=== PATIENT | female | born 2000 | race African-American/Black ===

== ENCOUNTER 2024-04-05 10:00 | Emergency (ER) | payer OTHER, SELFPAY ==
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
[2024-04-05 10:01] VITALS: BP 104/68; PULSE 87; RESP 18; TEMP 36.7; O2SAT 99
--- NOTE | 2024-04-05 11:19 | PC.NURSE ---
Pt refused medications said I can not swallow these . Pt try to take medications but spit them out.
[2024-04-05 11:22] LABS: BEDSIDEPREGUCG Negative (Negative)
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
[2024-04-05 12:31] VITALS: BP 100/60; PULSE 75; RESP 16; O2SAT 99
== END 2024-04-05 12:33 | disposition home or self-care (01) ==
PROVIDERS: Emergency Provider Emergency Medicine
DX: M54.50 Low back pain, unspecified (principal); M54.6 Pain in thoracic spine; V89.2XXA Person injured in unspecified motor-vehicle accident, traffic, initial encounter
CPT/HCPCS: 71250; 72128; 72131; 81025; 99284; A9270

== ENCOUNTER 2024-07-26 18:21 | Emergency (ER) | payer SELFPAY ==
[2024-07-26 18:23] VITALS: BP 110/76; PULSE 72; RESP 15; TEMP 36.6; O2SAT 100
--- OUTSIDE RECORDS SUMMARY | 2024-07-26 18:23 | XMS_ITS | Continuity of Care Document ---
Author Name [facility] Organization [facility] Care Team Providers Care Lead Data Entry Operator Name Role Phone [facility] Unavailable Unavailable Results Combined list of recent chemistry, hematology and other laboratory results from [facility] and [facility], ranging from 15 months to all on record, depending upon the facility. Order Name Results Value Reference Range Date Interpretation Specimen Comments Source Chemistry POC U HCG Negative (07/11/23 7:51 AM) 07/[address] [place] [address] Vital Signs Combined list of inpatient and outpatient Vital Signs from [facility] and [facility], ranging from 12 months to all on record, depending upon the facility. Vital Sign Value Date Comments Source Peripheral Pulse Rate 95 bpm 07/11/2023 12:37:[address] [place] [address] Systolic Blood Pressure 98 mm[Hg] 07/11/2023 12:37:[address] [place] [address] Diastolic Blood Pressure 57 mm[Hg] 07/11/2023 12:37:[address] [place] [address] Procedures Combined list of: 1) Procedures from [facility] facilities going back up to thelast 18 months, not all [place] non-surgical procedures are included; 2) All procedures from the Department [facility] facilities. Procedure Procedure Type Code Date Perfomer Comments Sourc e No data available for this section Ambulatory P harmacy Social History Combined list of available smoking, tobacco, and other social history from [facility] and [facility] facilities. Social History Type Response Date Comment Sourc e Sexual Orientation Ambula tory Pharmacy Gender identity Ambulator y Pharmacy Sex Representation Female Unknow n Organization Assessment and Plan Combined list of future care activities from [facility] and [facility] facilities (e.g., assessment and plan notes, appointments, orders, and referrals). Additional future care activities may be listed in the Plan of Care section. Result Assessment and Plan Date Source Assessment and Plan Extracted from:Title : Education Note Author: SANTANA SUE Date: 07/11/23 07/26/2024 [id number] MEPS Functional Status Combined list of recent functional and cognitive assessments recorded at [facility] ([facility]VA Functional [place] Measurement (FIM) Scale: 1 = Total Assistance (Subject = 0% +), 2 = Maximal Assistance (Subject = 25% +), 3 = Moderate Assistance (Subject = 50% +), 4 = Minimal Assistance (Subject = 75% +), 5 = Supervision, 6 = Modified [place] (Device), 7 = Complete [place] (Timely, Safely). Assessment Date/Time Source Assessment Type Assessment Skill Assessment Score Assessment Details No data available for this section
[2024-07-26 19:10] LABS: Influenza A QL RT-PCR Negative (Negative); Influenza B QL RT-PCR Negative (Negative); RSV RNA, RT-PCR Negative (Negative); SARS-CoV-2 RNA PCR Negative (Negative)
--- OUTSIDE RECORDS SUMMARY | 2024-07-26 20:15 | XMS_ITS | Continuity of Care Document ---
Author Name [facility] Organization [facility] Care Team Providers Care Auto Dealership Porter Name Role Phone [facility] Unavailable Unavailable Results Combined list of recent chemistry, hematology and other laboratory results from [facility] and [facility], ranging from 15 months to all on record, depending upon the facility. Order Name Results Value Reference Range Date Interpretation Specimen Comments Source Chemistry POC U HCG Negative (07/11/23 7:51 AM) 07/[address] [place] [address] Vital Signs Combined list of inpatient and outpatient Vital Signs from [facility] and [facility], ranging from 12 months to all on record, depending upon the facility. Vital Sign Value Date Comments Source Peripheral Pulse Rate 95 bpm 07/11/2023 12:37:[address] [place] [address] Systolic Blood Pressure 98 mm[Hg] 07/11/2023 12:37:[address] [place] [address] Diastolic Blood Pressure 57 mm[Hg] 07/11/2023 12:37:[address] [place] [address] Procedures Combined list of: 1) Procedures from [facility] facilities going back up to thelast 18 months, not all [place] non-surgical procedures are included; 2) All procedures from the Department [facility] facilities. Procedure Procedure Type Code Date Perfomer Comments Sourc e No data available for this section Ambulatory P harmacy Social History Combined list of available smoking, tobacco, and other social history from [facility] and [facility] facilities. Social History Type Response Date Comment Sourc e Sexual Orientation Ambula tory Pharmacy Gender identity Ambulator y Pharmacy Sex Representation Female Unknow n Organization Assessment and Plan Combined list of future care activities from [facility] and [facility] facilities (e.g., assessment and plan notes, appointments, orders, and referrals). Additional future care activities may be listed in the Plan of Care section. Result Assessment and Plan Date Source Assessment and Plan Extracted from:Title : Education Note Author: SANTANA SUE Date: 07/11/23 07/27/2024 [id number]-Michelle MEPS Functional Status Combined list of recent functional and cognitive assessments recorded at [facility] ([facility]VA Functional [place] Measurement (FIM) Scale: 1 = Total Assistance (Subject = 0% +), 2 = Maximal Assistance (Subject = 25% +), 3 = Moderate Assistance (Subject = 50% +), 4 = Minimal Assistance (Subject = 75% +), 5 = Supervision, 6 = Modified [place] (Device), 7 = Complete [place] (Timely, Safely). Assessment Date/Time Source Assessment Type Assessment Skill Assessment Score Assessment Details No data available for this section
--- NOTE | 2024-07-26 21:09 | ED.URI ---
HPI - URI/Sore Throat General Chief Complaint: Upper Respiratory Infection Stated Complaint: sore throat x4d Time Seen by Provider: 07/26/24 19:50 History of Present Illness HPI Narrative: 23-year-old female no past medical history presents to emergency department for URI symptoms for the past 4 days. Patient is reporting some congestion, cough, sore throat, shortness of breath. She took NyQuil prior to arrival with some improvement. She has not been evaluated for these symptoms. No fevers, nausea vomiting, diarrhea. Related Data Allergies Allergy/AdvReac Type Severity Reaction Status Date / Time No Known Allergies Allergy Verified 07/26/24 18:26 Review of Systems Review of Systems: All systems reviewed & are unremarkable except as noted in HPI and below Exam Narrative: GENERAL: Well-appearing, well-nourished, and in no acute distress. HEAD: Normocephalic, atraumatic. EYES: EOMI. ENT: Nares congested, no epistaxis. Mucous membranes moist. Bilateral TMs are chavez nonbulging with normal canals. Posterior pharynx with mild erythema, no tonsillar hypertrophy or exudates, no uvular deviation, no trismus or dysphonia NECK: Supple. CHEST: Clear to auscultation. No respiratory distress. HEART: Regular rate and rhythm. No murmur heard. Normal peripheral pulses. ABDOMEN: Soft, nontender, nondistended, normal active bowel sounds. EXTREMITIES: Normal range of motion. No edema. SKIN: Warm, dry, no rash. NEURO: No focal deficits. Alert and oriented x3 Course Vital Signs Vital signs: Vital Signs Temperature 97.8 F 07/26/24 18:23 Pulse Rate 72 07/26/24 18:23 Respiratory Rate 15 07/26/24 18:23 Blood Pressure 110/76 07/26/24 18:23 Pulse Oximetry 100 07/26/24 18:23 Oxygen Delivery Room Air 07/26/24 18:23 Temperature 97.8 F 07/26/24 18:23 Pulse Rate 72 07/26/24 18:23 Respiratory Rate 15 07/26/24 18:23 Blood Pressure 110/76 07/26/24 18:23 Pulse Oximetry 100 07/26/24 18:23 Oxygen Delivery Room Air 07/26/24 18:23 MDM - URI/Sore Throat MDM Narrative Medical decision making narrative: 23-year-old female with no past medical history presents to emergency department for URI symptoms for the past 4 days. Triage vitals are stable. Patient is afebrile and nontoxic appearing. Exam significant for the above. Lung sounds are clear. Posterior pharynx with mild erythema, no findings concerning for MANAGER TRUST or deep space infection. Viral swabs were negative. I did offer to obtain strep swab, mono and chest x-ray, however patient declined states she would like to go home. Will send ibuprofen and Flonase to the pharmacy, advised increase fluid intake and close follow-up with PCP. Return precautions discussed. She is agreeable with the plan verbalized understanding. Discharged in stable condition. Lab Data Labs: Lab Results 07/26/24 Range/Units 18:28 Influenza A (RT-PCR) Negative (Negative) Influenza B (RT-PCR) Negative (Negative) RSV (RT-PCR) Negative (Negative) SARS-CoV-2 RNA (RT-PCR) Negative (Negative) Discharge Plan Discharge Clinical Impression: Upper respiratory infection Qualifiers: URI type: unspecified viral URI Qualified Code(s): J06.9 - Acute upper respiratory infection, unspecified Patient Disposition: Home, Self-Care Condition: Stable Instructions: Antibiotic Form, Upper Respiratory Infection (DC) Additional Instructions: Please rest, drink plenty of water, take medications as needed as prescribed and follow-up closely with primary care provider. Return to the emergency department if you develop difficulty swallowing, you are unable to tolerate food or fluids, fever or other concerning symptoms. Patient Language: Trinidadian Prescriptions: New ibuprofen 800 mg tablet 800 mg PO TID PRN (Reason: pain) Qty: 20 0RF fluticasone propionate [Flonase Allergy Relief] 50 mcg/actuation spray,suspension 1 spray intranasal Q12H Qty: 16 0RF Rx Instructions: administer into each nostril No Action ibuprofen 800 mg tablet 800 mg PO TID PRN (Reason: pain) 7 Days Qty: 21 0RF acetaminophen 500 mg tablet 1,000 mg PO TID PRN (Reason: rand) 7 Days Qty: 42 0RF methocarbamol 750 mg tablet 1,500 mg PO TID Qty: 35 0RF Follow-up/Referrals: PHYSICIAN,DERRICK HAND [Primary Care Provider] - Jabier Helms MD [Physician] -
[2024-07-26] MEDS: IBUPROFEN 400 MG TABLET 800 MG PO (22:16)
[2024-07-26 22:27] VITALS: BP 114/70; PULSE 78; RESP 16; O2SAT 99
== END 2024-07-26 22:28 | disposition home or self-care (01) ==
PROVIDERS: Emergency Medicine; Emergency Provider Physician Assistant
DX: J06.9 Acute upper respiratory infection, unspecified (principal); Z20.822 Contact with and (suspected) exposure to COVID-19
CPT/HCPCS: 87637; 99283; A9270

== ENCOUNTER 2024-12-21 20:08 | Emergency (ER) | payer SELFPAY ==
--- NOTE | ~2024-12-21 | US_ITS ---
Pelvic ultrasound. Clinical History: First trimester , assess for ectopic . Technique: Realtime transabdominal and transvaginal scanning of the pelvis was performed. Color flow Doppler and Doppler spectral analysis were performed. Findings: The uterus is anteverted, and contains an intrauterine gestational sac. [place]-rump length of 4 mm corresponds to an estimated gestational age of 6 weeks 1 day. heart rate is 103 bpm. Small subchorionic hemorrhage is present. The right ovary measures 2.0 x 1.3 x 1.8 cm. No significant right ovarian or adnexal mass is seen. The left ovary measures 2.0 x 1.3 x 2.2 cm. No significant left ovarian or adnexal mass is seen. There is no evidence of free fluid in the cul de sac. Impression: Live intrauterine gestation, with estimated gestational age of 6 weeks 1 day. heart rate is 103 bpm. Relative bradycardia may be related to the early gestational age. Small subchorionic hemorrhage. Reviewed, dictated and finalized at location . Impression: Live intrauterine gestation, with estimated gestational age of 6 weeks 1 day. F etal heart rate is 103 bpm. Relative bradycardia may be related to the early ge stational age. Small subchorionic hemorrhage.
[2024-12-21 20:09] VITALS: BP 102/65; PULSE 87; RESP 16; TEMP 36.3; O2SAT 100
--- OUTSIDE RECORDS SUMMARY | 2024-12-21 20:10 | XMS_ITS | Continuity of Care Document ---
Author Name [facility] Organization [facility] Care Team Providers Care Courtroom Deputy Or Calendar Clerk Name Role Phone [facility] Unavailable Unavailable Results Combined list of recent chemistry, hematology and other laboratory results from [facility] and [facility], ranging from 15 months to all on record, depending upon the facility. Order Name Results Value Reference Range Date Interpretation Specimen Comments Source Chemistry POC U HCG Negative (07/11/23 7:51 AM) 07/[address] [place] [address] Vital Signs Combined list of inpatient and outpatient Vital Signs from [facility] and [facility], ranging from 12 months to all on record, depending upon the facility. Vital Sign Value Date Comments Source Peripheral Pulse Rate 95 bpm 07/11/2023 12:37:[address] [place] [address] Systolic Blood Pressure 98 mm[Hg] 07/11/2023 12:37:[address] [place] [address] Diastolic Blood Pressure 57 mm[Hg] 07/11/2023 12:37:[address] [place] [address] Procedures Combined list of: 1) Procedures from [facility] facilities going back up to thelast 18 months, not all [place] non-surgical procedures are included; 2) All procedures from the Department [facility] facilities. Procedure Procedure Type Code Date Perfomer Comments Sourc e No data available for this section Ambulatory P harmacy Social History Combined list of available smoking, tobacco, and other social history from [facility] and [facility] facilities. Social History Type Response Date Comment Sourc e Sexual Orientation Ambula tory Pharmacy Gender identity Ambulator y Pharmacy Sex Representation Female (finding) Unknown Organization Assessment and Plan Combined list of future care activities from [facility] and [facility] facilities (e.g., assessment and plan notes, appointments, orders, and referrals). Additional future care activities may be listed in the Plan of Care section. Result Assessment and Plan Date Source Assessment and Plan Extracted from:Title : Education Note Author: SANTANA SUE Date: 07/11/23 12/22/2024 [id number]-Michelle MEPS Functional Status Combined list of recent functional and cognitive assessments recorded at [facility] ([facility]VA Functional [place] Measurement (FIM) Scale: 1 = Total Assistance (Subject = 0% +), 2 = Maximal Assistance (Subject = 25% +), 3 = Moderate Assistance (Subject = 50% +), 4 = Minimal Assistance (Subject = 75% +), 5 = Supervision, 6 = Modified [place] (Device), 7 = Complete [place] (Timely, Safely). Assessment Date/Time Source Assessment Type Assessment Skill Assessment Score Assessment Details No data available for this section
--- OUTSIDE RECORDS SUMMARY | 2024-12-21 20:10 | XMS_ITS | Clinical Summary ---
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/2019 Encounters Date Type Department Care Team Description 12/21/2024 7:30 PM CDT Office Visit [facility] Medical Group Count Includes [facility] Care at [address] [phone] Trish Murrell NP Routine screening for STI (sexually transmitted infection) (Primary Dx) from Last 3 Months Medical History Medical History Date Comments Marijuana use Vapes nicotine containing substance Alcohol use Social History Tobacco Use Types Packs/Day Years Used Date Smoking Tobacco: Some Days Tobacco Cessation:Ready to Q uit: Not Asked; Counseling Given: Not Answered Comments:marijuana Alcohol Use Standard Drinks/Week Comments Yes 0 (1 standard drink = 0.6 oz pur e alcohol) Personal Safety Answer Date Recorded Have you ever been in or are you currently in a harmful physical or emotional relationship or is someone making you feel afraid or unsafe? Denies 07/31/2024 Comments Unknown Sex and Gender Information Value Date Recorded Sex Assigned at Not on file Legal Sex Female 12:51 PM CDT Gender Identity Female 07/31/2024 1:56 AM CDT Sexual Orientation Not on file Obstetrics History Last Filed Vital Signs Vital Sign Reading Time Taken Comments Blood Pressure 90/61 12/21/2024 7:34 PM CDT Pulse 94 12/21/2024 7:34 PM CDT Temperature 36.7 C (98.1 F) 12/21/2024 7:34 PM CDT Respiratory Rate 18 12/21/2024 7:34 PM CDT Oxygen Saturation 99% 12/21/2024 7:34 PM CDT Inhaled Oxygen Concentration - - Weight 60 kg (132 lb 3.2 oz) 12/21/2024 7:34 PM CDT Height 160 cm (5' 2.99) 12/21/2024 7:34 PM CDT Body Mass Index 23.42 12/21/2024 7:34 PM CDT Plan of Treatment Health Maintenance Due Date Last Done Comments Cervical Cancer Screening 2002 Depression Screening 2002 Hepatitis C Screening 2002 Pneumococcal vaccine <65 (1 of 1 - PPSV23, PCV20, or PCV21) 2008 09/13/2004 Meningococcal B Vaccine (2 o f 2 - Bexsero SCDM 2-dose series) 06/07/2019 12/05/2018 Regular Well Visit/Exam 18-64 2020 DTaP/Tdap/Td Vaccine (7 - Td or Tdap) 02/16/2024 02/15/2014, 01/01/2007, 07/05/2005, Additional history exists Influenza Vaccine (#1) 2025 9, 02/12/2014, 02/07/2012, Additional history exists Varicella Vaccines Completed 02/10/2008, 0 01/01/2007, 09/13/2004 Hepatitis B Screening Completed 01/02/2010 , 07/05/2005, 09/13/2004 HPV Vaccines Completed 12/07/2016, 02/03, 02/07/[address] [place] [address] [facility] Care Teams Assembler 1St Shift Relationship Specialty Start Date End Date Ly Guhtrie MD [address] [place] [address] [place] [id number] PCP - General 06/29/19
--- OUTSIDE RECORDS SUMMARY | 2024-12-21 20:10 | XMS_ITS | Encounter Summary ---
Author Organization [facility] Healthcare Address [address] [place] [address] Care Team Providers Care Game Room Attendant Name Role Phone Ly Guthrie MD [facility] Reason for Visit * Reason Comments STI Testing Routine screening, sarah schaeffer wants to check because she is 5 weeks Encounter Details Date Type Department Care Team (Late st Contact Info) Description 12/21/2024 7:30 PM CDT Office Visit [facility] Medical Group [facility] Care at [address] [phone] Trish Murrell NP [address] [place] [id number] Routine screening for STI (sexually transmitted infection) (Primary Dx) Social History Tobacco Use Types Packs/Day Years Used Date Smoking Tobacco: Some Days Comments:marijuana Alcohol Use Standard Drinks/Week Comments Yes [...] AM CDT Sexual Orientation Not on file documented as of this encounter Last Filed Vital Signs Vital Sign Reading [...] Mass Index 23.42 12/21/2024 7:34 PM CDT documented in this encounter Progress Notes * Trish Murrell, WOOD AND HARDWARE OUTFITTER - 12/21/2024 7:30 PM CDT Images from the original note were not included. Subjective/Objective Patient ID: Britta Castle is a 24 y.o. female. This patient has verbally consented to recording this visit in order to utilize AI technology in generating this note. Chief Complaint STI Testing (Routine screening, just wants to check because she is 5 weeks ) History of Present Illness Britta Castle is a 24 year old female who presents for routine STI screening. She is undergoing screening for chlamydia, gonorrhea, trichomonas, bacterial vaginosis, and yeast infections. She reports no known positive exposures and states that no one has told her she has an STI. She has a history of urinary tract infections and yeast infections but has never had a sexually transmitted disease. She is seeking screening due to a recent incident where her partner was involved with another female without protection. No new rashes or lesions in the genital area. Review of Systems All other systems reviewed and are negative. Physical Exam Physical Exam Vitals reviewed. Constitutional: General: She is not in acute distress. Appearance: Normal appearance. She is not ill-appearing. HENT: Head: Normocephalic. Mouth/Throat: Lips: [place]. Cardiovascular: Rate and Rhythm: Normal rate. Pulmonary: Effort: Pulmonary effort is normal. Breath sounds: Normal breath sounds. Skin: General: Skin is warm. Neurological: Mental Status: She is alert and oriented to person, place, and time. Psychiatric: Mood and Affect: Mood normal. Vitals: 12/21/24 1934 BP: 90/61 Pulse: 94 Resp: 18 Temp: 36.7 ??C (98.1 ??F) SpO2: 99% Weight: 60 kg (132 lb 3.2 oz) Height: 160 cm (5' 2.99) Past Medical History: Diagnosis Date Alcohol use Marijuana use Vapes nicotine containing substance No current outpatient medications on file. No Known Allergies Social History Tobacco Use Smoking status: Some Days Smokeless tobacco: None Tobacco comments: marijuana Substance and Sexual Activity Drug use: Yes Types: Marijuana Sexual activity: Defer Alcohol Use: Not on file History reviewed. No pertinent surgical history. Assessment/Plan 1. Routine screening for STI (sexually transmitted infection) (Primary) - N. gonorrhoeae/C. trachomatis Amplification Vaginal; Future - Vaginitis panel Vaginal; Future Results Assessment & Plan Routine STI Screening Routine STI screening conducted for safety. No positive exposures or symptoms reported. - Send STI screening tests for chlamydia, gonorrhea, trichomonas, BV, and yeast infections. - Contact her with results and discuss treatment options if any tests return positive. Education You have been screened today for certain sexually transmitted infections. Someone from the clinic will call you with the test results. -It is important that you and your partner(s) receive treatment to prevent potential serious complications from untreated sexually transmitted infections. - If you were prescribed outpatient antibiotics today, please complete all antibiotics as prescribed. It is important that you take the full course of antibiotics to clear the infection. - Do not share antibiotics with your partner. They also need a full course of antibiotics to be treated. - If any of your tests are positive for sexually transmitted infection, it is very important that you contact all sexual partners from the last 60 days and advise them to also be tested and/or receive treatment-even if they do not have any symptoms and/or have been test negative for previously. - To prevent re-infection do not have sex until one week AFTER both you AND your partner(s) have been treated. - Practice safe sex in the future by properly using condoms or abstaining from sex. - Recommend repeat testing in 3-6 months to ensure infection is cleared and that you have not been re-infected from untreated sexual partners. Any further Sexually Transmitted Infection testing including HIV/AIDS, Hepatitis B or C, or Syphilis will need to be completed by your Primary Care Physician or the [facility]. [place] [place] [facility] [address] [place], [place] [id number] SEXUALLY TRANSMITTED DISEASE CLINIC HOURS Mondays from 1 PM to 5 PM (for clients not experiencing symptoms) Saturday mornings by appointment Tuesdays from 1 PM to 3 PM A Nurse Practitioner will be on site on Tuesdays to perform exams. Walk-in Clinics -- First come, first served For individuals who prefer appointment, please call , ext. [phone] to schedule an appointment on Saturday. Our clinic tests for chlamydia, gonorrhea, HIV and syphilis. Hepatitis C and Herpes testing available upon request for an additional charge. Throat and rectal swabs for gonorrhea and chlamydia available upon request for an additional charge. Disposition Treatment plan including expectations, follow up, and return precautions discussed with patient/parent, verbalizes understanding. Medication dosage, use, and potential adverse reactions discussed with patient/parent. Advised to follow up with PCP if symptoms do not resolve as expected or sooner if condition worsens. Signs/symptoms warranting ER evaluation reviewed. Patient and/or guardian was given an opportunity to ask questions, questions answered. Trish Murrell NP This office note has been partially dictated using rumr software, and as a result portions of the record may have been created with this software. Occasional wrong-word or '[id number]' substitutions may have occurred due to the inherent limitations of voice recognition software. Read the chartcarefully and recognize, using context, where substitutions have occurred. documented in this encounter Plan of Treatment Scheduled Orders Name Type Priority Associated Diagnoses Orde r Schedule N. gonorrhoeae/C. trachomatis Amplification Vaginal Microbiology Routine Routine screening for STI (sexually transmitted infection) Expected: 12/21/2024, Expires: 12/21/2025 Vaginitis panel Vaginal Microbiology Routine Routine screening for STI (sexually transmitted infection) Expected: 12/21/2024, Expires: 12/21/2025 documented as of this encounter Visit Diagnoses Diagnosis Routine screening for STI (sexually transmitted infection)- Primary Screening examination for venereal disease documented in this encounter Care Teams Game Room Attendant Relationship Specialty Start Date End Date Ly Guthrie MD [address] [address] PCP - General 06/29/19 documented as of this encounter
[2024-12-21 20:22] LABS: Hematocrit 40.1 % (37.0-47.0); Hemoglobin 13.3 g/dL (12.0-15.0); Immature Granulocyte Percent A 0.3 % (0-0.5); Lymphocytes Absolute Auto 1.49 K/mm3 (0.9-3.2); Mean Corpuscular HGB Conc 33.2 g/dl (32-36); Mean Corpuscular Hemoglobin 29.1 pg (26-34); Mean Corpuscular Volume 87.7 fl (80-100); Nucleated Red Blood Cells Absolute Auto 0.000 K/mm3 (0.0-0.012); Nucleated Red Blood Cells Perc 0.0 % (0.0-0.2); Platelet Count Result 256 k/mm3 (150-375); Red Blood Count 4.57 M/mm3 (4.2-5.4); White Blood Count 7.3 K/mm3 (4.5-10.0)
[2024-12-21 20:32] LABS: Alanine Aminotransferase 12 U/L (6-35); Albumin Level 4.7 g/dL (3.5-5.1); Alkaline Phosphatase 48 U/L (38-126); Anion Gap 11 mmol/L (4-12); Aspartate Amino Transferase 24 U/L (14-36); Bilirubin,Total 0.5 mg/dL (0.2-1.3); Blood Urea Nitrogen 11 mg/dL (7-17); Calcium 9.4 mg/dL (8.4-10.2); Carbon Dioxide 22 mmol/L (22-30); Chloride 103 mmol/L (98-107); Estimated CRCL calculation 99 ml/min; Estimated Glomerular Filt Rate > 60; Glucose 116 mg/dL (65-110); Lipase 70 U/L (23-300); Potassium 3.7 mmol/L (3.4-5.0); Sodium 136 mmol/L (137-145); Total Protein 8.4 g/dL (6.3-8.2)
[2024-12-21 22:29] LABS: Add Urine Microscopic? YES; Appearance Urine Clear (Clear); Glucose Urine UA Negative (Negative); Leukocyte Esterase Ur 3+ LEU/UL (Negative); Nitrate Urine Negative (Negative); Specific Grav Ur 1.035 (1.001-1.035)
--- OUTSIDE RECORDS SUMMARY | 2024-12-21 23:31 | XMS_ITS | Clinical Summary ---
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 Encounters Date Type Department Care Team Description 12/21/2024 7:45 PM CDT Hospital Encounter [phone] [place] [address] Routine screening for STI (sexually transmitted infection) 12/21/2024 7:30 PM CDT Office Visit [facility] Medical Group [facility] Care at [address] [phone] Trish Murrell NP Routine screening for STI [...] 09/13/2004 HPV Vaccines Completed 12/07/2016, 02/03, 02/07/2012 Procedures Procedure Name Priority Date/Time Associated Diagnosis Comments VAGINITIS PANEL Routine 12/21/2024 7:45 PM CDT Routine screening for STI (sexually transmitted infection) from Last 3 Months Results * Vaginitis panel Vaginal (12/21/2024 7:45 PM CDT) Pathologist [facility] Bacterial Vaginosis Not Detected Not Detected Comment:A negative result do es not preclude a possible infection. Results should be considered in conjunction with clinical presentation to determine the disease status. Anya group Not Detected Not Detected [facility] Anya glabrata/ krusei Not Detected Not Detected [facility] Trichomonas DNA Not Detected Not Detected [facility] Vaginal 12/21/2024 7:45 PM CDT 12/21/2024 9:11 PM CDT Narrative [facility] - 12/21/2024 10:31 PM CDT The [employer] Xpert Xpress MVP test detects DNA targets from anaerobic bacteria associated with bacterial vaginosis, Anya species associated with vulvovaginal candidiasis, and Trichomonas vaginalis by nucleic acid amplification testing (NAAT). Results should be interpreted in conjunction with other clinical data. This test cannot be used to assess therapeutic success or failure because target nucleic acids may persist following antimicrobial therapy. This test has been cleared by the [place] Food and Drug Administration to aid in the diagnosis of vaginal infections in symptomatic women ages 14 and older. The performance characteristics of this test have been verified by the [facility]. Trish Murrell NP LAB MICROBIOLOGY - GENERAL ORD ERABLES Final Result [facility] [id number] Department [place] [address] CH from Last 3 Months Insurance [facility] Care Teams Senior Accountant Relationship Specialty Start Date End Date Ly Guthrie MD [address] [address] PCP - General 06/29/19
--- OUTSIDE RECORDS SUMMARY | 2024-12-21 23:31 | XMS_ITS | Encounter Summary ---
Author Organization [facility] Healthcare Address [address] [place] [address] Care Team Providers Care Car Rental Agent Name Role Phone Ly Guthrie MD [facility] Reason for Visit * Reason Comments STI Testing Routine screening, sarah schaeffer wants to check because she is 5 weeks Encounter Details Date Type Department Care Team (Late st Contact Info) Description 12/21/2024 7:30 PM CDT Office Visit [facility] Medical Group Convenient Care at [address] [phone] Trish Murrell NP [address] [place] [address] Routine screening for STI (sexually transmitted [...] this encounter Progress Notes * Trish Murrell, JEWELRY CASTING MODEL MAKER APPRENTICE - 12/21/2024 7:30 PM CDT Images from [...] not ill-appearing. HENT: Head: Normocephalic. Mouth/Throat: Lips: [place]. Cardiovascular: Rate and Rhythm: Normal rate. Pulmonary: [...] by your Primary Care Physician or the [facility] Health Department. [place], [place] [facility] [address] [place], [place] [id number] SEXUALLY TRANSMITTED DISEASE CLINIC HOURS Mondays from [...] office note has been partially dictated using OpGen software, and as a result portions of the record may have been created with this software. Occasional wrong-word or '[id number]' substitutions may have occurred due to the inherent limitations of voice recognition software. Read the chartcarefully and recognize, using context, where substitutions have occurred. documented in this encounter Plan of Treatment Pending Results Name Type Priority Associated Diagnoses Date /Time N. gonorrhoeae/C. trachomatis Amplification Vaginal Microbiology Routine Routine screening for STI (sexually transmitted infection) 12/21/2024 7:45 PM CDT Scheduled Orders Name Type Priority Associated Diagnoses Orde r Schedule N. gonorrhoeae/C. trachomatis Amplification Vaginal Microbiology Routine Routine screening for STI (sexually transmitted infection) Expected: 12/21/2024, Expires: 12/21/2025 documented as of this encounter Results * Vaginitis panel Vaginal (12/21/2024 7:45 PM CDT) Bacterial Vaginosis Not Detected Not Detected [facility] Comment:A negative result do es not preclude a possible infection. Results should be considered in conjunction with clinical presentation to determine the disease status. Anya group Not Detected Not Detected [facility] Anya glabrata/ krusei Not Detected Not Detected [facility] Trichomonas DNA Not Detected Not Detected [facility] Vaginal 12/21/2024 7:45 PM CDT 12/21/2024 9:11 PM CDT Narrative [facility] - 12/21/2024 10:31 PM CDT The [employer] Xpert Xpress MVP test detects DNA targets [...] this test have been verified by the [facility]. Trish Murrell NP LAB MICROBIOLOGY - GENERAL ORD ERABLES Final Result [facility] [id number] Department [place] [address] documented in this encounter Visit Diagnoses Diagnosis Routine screening for STI (sexually transmitted infection)- Primary Screening examination for venereal disease Routine screening for STI (sexually transmitted infection) Screening examination for venereal disease documented in this encounter Care Teams Car Rental Agent Relationship Specialty Start Date End Date Ly Guthrie MD [address] [address] PCP - General 06/29/19 documented as of this encounter
--- OUTSIDE RECORDS SUMMARY | 2024-12-21 23:31 | XMS_ITS | Continuity of Care Document ---
Author Name [facility] Organization [facility] Care Team Providers Care Cbx Operator Name Role Phone [facility] Unavailable Unavailable Results Combined list of recent chemistry, hematology and other laboratory results from [facility] and [facility], ranging from 15 months to all on record, depending upon the facility. Order Name Results Value Reference Range Date Interpretation Specimen Comments Source Chemistry POC U HCG Negative (07/11/23 7:51 AM) 07/[address] [place] [address] Vital Signs Combined list of inpatient and outpatient Vital Signs from [facility] and [facility], ranging from 12 months to all on record, depending upon the facility. Vital Sign Value Date Comments Source Peripheral Pulse Rate 95 bpm 07/11/2023 12:37:[address] [place] [address] Systolic Blood Pressure 98 mm[Hg] 07/11/2023 12:37:[address] [place] [address] Diastolic Blood Pressure 57 mm[Hg] 07/11/2023 12:37:[address] [place] [address] Procedures Combined list of: 1) Procedures from [facility] facilities going back up to thelast 18 months, not all ID non-surgical procedures are included; 2) All procedures from the Department [facility] facilities. Procedure Procedure Type Code Date Perfomer Comments Sourc e No data available for this section Ambulatory P harmacy Social History Combined list of available smoking, tobacco, and other social history from Department [facility] and [facility] facilities. Social History Type Response Date Comment Sourc e Sexual Orientation Ambula tory Pharmacy Gender identity Ambulator y Pharmacy Sex Representation Female (finding) Unknown Organization Assessment and Plan Combined list of future care activities from Department [facility] and [facility] facilities (e.g., assessment and plan notes, [...] of Defense and Veterans Affairs (VA).VA Functional Hughes Measurement (FIM) Scale: 1 = Total Assistance (Subject = 0% +), 2 = Maximal Assistance (Subject = 25% +), 3 = Moderate Assistance (Subject = 50% +), 4 = Minimal Assistance (Subject = 75% +), 5 = Supervision, 6 = Modified Hughes (Device), 7 = Complete Hughes (Timely, Safely). Assessment Date/Time Source Assessment Type Assessment Skill Assessment Score Assessment Details No data available for this section
--- OUTSIDE RECORDS SUMMARY | 2024-12-21 23:31 | XMS_ITS | Encounter Summary ---
Author Organization [facility] Healthcare Address [address] [place] [address] Care Team Providers Care Senior Accounting Specialist Name Role Phone Ly Guthrie MD Primary Care [facility] Encounter Details Date Type Department Care Team (Latest Contact Info) Description 12/21/2024 7:45 PM CDT Hospital Encounter [phone] [place] [address] Routine screening for STI (sexually transmitted infection) Social History Tobacco Use Types Packs/Day Years [...] on file documented as of this encounter Plan of Treatment Pending Results Name Type Priority Associated Diagnoses Date /Time N. gonorrhoeae/C. trachomatis Amplification Vaginal Microbiology Routine Routine screening for STI (sexually transmitted infection) 12/21/2024 7:45 PM CDT Scheduled Orders Name Type Priority Associated Diagnoses Orde r Schedule N. gonorrhoeae/C. trachomatis Amplification Vaginal Microbiology Routine Routine screening for STI (sexually transmitted infection) Once for 1 Occurrences starting 12/21/2024 until 12/21/2024 documented as of this encounter Procedures Procedure Name Priority Date/Time Associated Diagnosis Comments VAGINITIS PANEL Routine 12/21/2024 7:45 PM CDT Routine screening for STI (sexually transmitted infection) documented in this encounter Results * Vaginitis panel Vaginal (12/21/2024 7:45 PM CDT) Bacterial Vaginosis Not Detected Not Detected Comment:A negative result do es not preclude a possible infection. Results should be considered in conjunction with clinical presentation to determine the disease status. Anya group Not Detected Not Detected [facility] Anya glabrata/ krusei Not Detected Not Detected [facility] Trichomonas DNA Not Detected Not Detected [facility] Vaginal 12/21/2024 7:45 PM CDT 12/21/2024 9:11 PM CDT Narrative [facility] - 12/21/2024 10:31 PM CDT The [employer] Xpert Xpress MVP test detects DNA targets [...] this test have been verified by the [facility]. Trish Murrell NP LAB MICROBIOLOGY - GENERAL ORD ERABLES Final Result [facility] [address] [place] [address] documented in this encounter Visit Diagnoses Diagnosis Routine screening for STI (sexually transmitted infection) Screening examination for venereal disease documented in this encounter Care Teams Senior Accounting Specialist Relationship Specialty Start Date End Date Ly Guthrie MD [address] [place] [address] PCP - General 06/29/19 documented as of this encounter
[2024-12-22] LABS: Beta HCG Quantitative 45488.00 mIU/ML
--- NOTE | 2024-12-22 00:41 | ED_ITS ---
HPI - General Adult General Chief complaint: Abdominal Pain Stated complaint: Abdominal pain, spotting Time Seen by Provider: 12/21/24 23:16 History of Present Illness HPI narrative: 24-year-old female presents to the emergency department for evaluation for vaginal spotting. Patient has been spotting for approximately 1 month but has had multiple home tests that were positive. She began having worsening abdominal pain today. Related Data Allergies Allergy/AdvReac Type Severity Reaction Status Date / Time No Known Allergies Allergy Verified 12/21/24 20:09 Review of Systems 2 Review of Systems: All systems reviewed & are unremarkable except as noted in HPI and below Exam 2 Narrative: APPEARANCE: Well appearing, no pain, no distress, well-nourished. HEAD: normocephalic, atraumatic. EYES: PERRLA/EOMI, conjunctivae clear. NOSE: Normal no drainage EARS:TMS clear with good light reflex. THROAT: Pharynx clear, no exudate. NECK: Supple. No adenopathy, no masses. RESPIRATORY: Airway patent, respirations nonlabored. Clear to auscultation bilaterally, no rales, rhonchi, wheezing. CARDIOVASCULAR: Regular rate and rhythm without murmurs rubs or gallops. ABDOMINAL: Soft, nontender, nondistended, normal bowel sounds MUSCULOSKELETAL: Moves all extremities. Strength/ROM intact, No edema, No calf tenderness. NEURO: Alert. Cranial nerves II through XII intact. Good gait. Good coordination SKIN: Warm, dry. Normal Color Course Vital Signs Vital signs: Vital Signs Temperature 97.4 F L 12/21/24 20:09 Pulse Rate 87 12/21/24 20:09 Respiratory Rate 16 12/21/24 20:09 Blood Pressure 102/65 12/21/24 20:09 Pulse Oximetry 100 12/21/24 20:09 Oxygen Delivery Room Air 12/21/24 20:09 Temperature 97.9 F 12/22/24 04:53 Pulse Rate 68 12/22/24 04:53 Respiratory Rate 16 12/22/24 04:53 Blood Pressure 117/74 12/22/24 04:53 Pulse Oximetry 97 12/22/24 04:53 Oxygen Delivery Room Air 12/21/24 20:09 Medical Decision Making [facility] Narrative Medical decision making narrative: 24-year-old female presents to the emergency department for evaluation for bleed is been ongoing for approximately 1 month. Patient did have an ultrasound that showed a low heart rate but a intrauterine fetus of approximately 6 weeks. Patient will have close follow-up with OB Gyne. Patient was unsure of her blood type and was advised to have close follow-up with her OB Gyne and to have her blood type determined. No RhoGAM was given in the emergency department. Differential Diagnosis Differential Diagnosis: Threatened miscarriage, subchorionic hemorrhage, vaginal bleeding, ectopic Vital Signs Vital Signs: Vital Signs Temperature 97.4 F L 12/21/24 20:09 Pulse Rate 87 12/21/24 20:09 Respiratory Rate 16 12/21/24 20:09 Blood Pressure 102/65 12/21/24 20:09 Pulse Oximetry 100 12/21/24 20:09 Oxygen Delivery Room Air 12/21/24 20:09 Temperature 97.9 F 12/22/24 04:53 Pulse Rate 68 12/22/24 04:53 Respiratory Rate 16 12/22/24 04:53 Blood Pressure 117/74 12/22/24 04:53 Pulse Oximetry 97 12/22/24 04:53 Oxygen Delivery Room Air 12/21/24 20:09 Lab Data Lab results reviewed: Yes I reviewed the patient's lab results. 12/21/24 20:17 12/21/24 20:17 Labs: Lab Results 12/21/24 12/21/24 12/21/24 Range/Units 20:16 20:17 22:13 WBC 7.3 (4.5-10.0) K/mm3 RBC 4.57 (4.2-5.4) M/mm3 Hgb 13.3 (12.0-15.0) g/dL Hct 40.1 (37.0-47.0) % MCV 87.7 (80-100) fl MCH 29.1 (26-34) pg MCHC 33.2 (32-36) g/dl RDW 12.7 (11.5-14.5) % Plt Count 256 (150-375) k/mm3 MPV 8.9 (7.4-10.4) fl Immature Gran % (Auto) 0.3 (0-0.5) % Neut % (Auto) 72.3 (45.5-73.1) % Lymph % (Auto) 20.5 (18.3-44.2) % [place] % (Auto) 6.2 (2.6-8.5) % Eos % (Auto) 0.4 (0-4.4) % Baso % (Auto) 0.3 (0.2-1.2) % Lymph # (Auto) 1.49 (0.9-3.2) K/mm3 [place] # (Auto) 0.5 (0.1-0.6) K/mm3 Eos # (Auto) 0.0 (0-0.3) K/mm3 Baso # (Auto) 0.0 (0.0-0.1) K/mm3 Abs Immat Gran (auto) 0.02 (0.00-0.031) K/mm3 Absolute Neuts (auto) 5.3 (1.3-6.7) K/mm3 Absolute Nucleated RBC 0.000 (0.0-0.012) K/mm3 Nucleated RBC % 0.0 (0.0-0.2) % Sodium 136 L (137-145) mmol/L Potassium 3.7 (3.4-5.0) mmol/L Chloride 103 (98-107) mmol/L Carbon Dioxide 22 (22-30) mmol/L Anion Gap 11 (4-12) mmol/L BUN 11 (7-17) mg/dL Creatinine 0.63 L (0.7-1.0) mg/dL Estim Creat Clear Calc 99 ml/min Estimated GFR > 60 (59 - ) Glucose 116 H (65-110) mg/dL Calcium 9.4 (8.4-10.2) mg/dL Total Bilirubin 0.5 (0.2-1.3) mg/dL AST 24 (14-36) U/L ALT 12 (6-35) U/L Alkaline Phosphatase 48 (38-126) U/L Total Protein 8.4 H (6.3-8.2) g/dL Albumin 4.7 (3.5-5.1) g/dL Lipase 70 (23-300) U/L Beta HCG, Quant 68677.00 mIU/ML Urine Color Yellow (Yellow) Urine Appearance Clear (Clear) Urine pH 6.0 (5.0-9.0) Ur Specific [place] 1.035 (1.001-1.035) Urine Protein Trace (Negative) mg/dL Urine Glucose (UA) Negative (Negative) mg/dL Urine Ketones Trace H (Negative) mg/dL Ur Blood (Man) Negative (Negative) Urine Nitrate Negative (Negative) Urine Bilirubin Negative (Negative) Urine Urobilinogen 1.0 (<2.0) mg/dL Leukocyte Esterase Rfl 3+ H (Negative) BERNADETTE/UL Urine RBC 3-5 H (0-2) /hpf Urine WBC 6-10 H (0-3) /hpf Ur Squamous Epith Cells Few (Few) /hpf Urine Bacteria 1+ H /hpf Urine Casts 3-5 Discharge Plan Discharge Clinical Impression: Miscarriage, threatened, early Patient Disposition: Home Condition: Stable Instructions: Antibiotic Form Additional Instructions: Your blood type was not checked today. Have close follow-up with your OB Gyne to have this checked. If you have any worsening symptoms then please call or return to the emergency department. Patient Language: Luxembourgish Prescriptions: No Action ibuprofen 800 mg tablet 800 mg PO TID PRN (Reason: pain) 7 Days Qty: 21 0RF acetaminophen 500 mg tablet 1,000 mg PO TID PRN (Reason: rand) 7 Days Qty: 42 0RF methocarbamol 750 mg tablet 1,500 mg PO TID Qty: 35 0RF ibuprofen 800 mg tablet 800 mg PO TID PRN (Reason: pain) Qty: 20 0RF fluticasone propionate [Flonase Allergy Relief] 50 mcg/actuation spray,suspension 1 spray intranasal Q12H Qty: 16 0RF Rx Instructions: administer into each nostril Follow-up/Referrals: PHYSICIAN,[facility] [Primary Care Provider, Internal Medicine]
--- NOTE | 2024-12-22 01:06 | PC.NURSE ---
pt to ultrasound via wheelchair
[2024-12-22 04:53] VITALS: BP 117/74; PULSE 68; RESP 16; TEMP 36.6; O2SAT 97
== END 2024-12-22 04:54 | disposition home or self-care (01) ==
PROVIDERS: Emergency Provider Emergency Medicine
DX: O20.0 Threatened abortion (principal); Z3A.01 Less than 8 weeks gestation of pregnancy
CPT/HCPCS: 36415; 76801; 76817; 80053; 81001; 83690; 84702; 85025; 87086; 99284